=== PATIENT | female | born 1955 | race Caucasian/White ===

== ENCOUNTER → 2021-01-21 | Outpatient (CLI) | payer OTHER, MEDICARE | LOC: HYPER 11:37 | PROVIDERS: ATTEND Emergency Medicine | DX: R21 Rash and other nonspecific skin eruption (principal); M79.2 Neuralgia and neuritis, unspecified; B02.8 Zoster with other complications; C50.812 Malignant neoplasm of overlapping sites of left female breast; C50.911 Malignant neoplasm of unspecified site of right female breast; D70.1 Agranulocytosis secondary to cancer chemotherapy; E66.9 Obesity, unspecified; Z68.27 Body mass index [BMI] 27.0-27.9, adult; Z87.891 Personal history of nicotine dependence; Z79.899 Other long term (current) drug therapy; Z90.13 Acquired absence of bilateral breasts and nipples; Z90.89 Acquired absence of other organs ==